=== PATIENT | female | born 1940 | race Caucasian/White ===

== ENCOUNTER → 2024-08-07 | Outpatient (CLI) | payer MEDICARE, SELFPAY ==
[2024-08-07 17:56] LABS: Alanine Aminotransferase < 7 U/L (10-49); Albumin, Serum 4.3 gm/dL (3.4-4.8); Albumin/Globulin Ratio 1.7 (1.2-2.2); Alkaline Phosphatase 43 U/L (46-116); Anion Gap 10 (7-16); Aspartate Amino Transferase 13 U/L (0-34); BUN/Creatinine Ratio 15 Ratio (12-20); Bilirubin,Total 0.3 mg/dL (0.3-1.2); Blood Urea Nitrogen 19 mg/dL (9-23); Calcium 10.3 mg/dL (8.3-10.6); Calcium (Corrected) 10.3 mg/dL (8.5-10.1); Carbon Dioxide 29.1 mMol/L (20.0-31.0); Chloride 100 mMol/L (98-107); Creatinine (Component) 1.3 mg/dL (0.6-1.3); Globulin 2.6 gm/dL (2.3-3.5); Glucose 124 mg/dL (74-106); Osmolality,Calculated 280 (275-295); Potassium 4.2 mMol/L (3.4-5.1); Sodium 139 mMol/L (136-145); Total Protein 6.9 gm/dL (5.7-8.2); eGFR 41 See Note
== END | disposition home or self-care (01) ==
LOC: COPL 16:55
PROVIDERS: PCP Specialist; Referring Provider Internal Medicine; Visit Provider Internal Medicine
DX: D64.9 Anemia, unspecified (principal); E03.9 Hypothyroidism, unspecified; E55.9 Vitamin D deficiency, unspecified; I10 Essential (primary) hypertension; M19.041 Primary osteoarthritis, right hand; M19.042 Primary osteoarthritis, left hand; M81.0 Age-related osteoporosis without current pathological fracture; M87.3 Other secondary osteonecrosis; S82.891K Other fracture of right lower leg, subsequent encounter for closed fracture with nonunion; T84.02 Dislocation of internal joint prosthesis; Z79.899 Other long term (current) drug therapy; Z87.11 Personal history of peptic ulcer disease
CPT/HCPCS: 36415; 80053

== ENCOUNTER → 2024-08-13 | Outpatient (CLI) | payer MEDICARE, SELFPAY ==
--- NOTE | 2024-08-13 16:09 | XR_ITS ---
Examination: Thoracic spine 3 views Technique one AP lateral coned lateral upper dorsal spine 3 views Exam date and time: August 13, 2024 1647 hours INDICATIONS: Patient fell one week ago with injury to the upper back, upper back pain. 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
== END | disposition home or self-care (01) ==
LOC: CDIM 15:54
PROVIDERS: PCP Specialist; Referring Provider Physician Assistant Medical; Visit Provider Physician Assistant Medical
DX: S29.9XXA Unspecified injury of thorax, initial encounter (principal); W19.XXXA Unspecified fall, initial encounter
CPT/HCPCS: 72072

== ENCOUNTER → 2024-08-29 | Outpatient (CLI) | payer MEDICARE, SELFPAY ==
[2024-08-29 13:11] LABS: Collection Type, Urine Clean Catch
[2024-08-29 13:30] LABS: Basophils % (Auto) 1 % (0-2.5); Eosinophils # (Auto) 0.2 Thou/mm3 (0.0-0.5); Eosinophils % (Auto) 3 % (0-10); Hematocrit 30.1 % (36.0-46.0); Hemoglobin 9.3 g/dL (12.0-16.0); Immature Granulocytes % (Auto) 1 % (0-0); Immature Granulocytes Auto 0.04 Thou/mm3 (0.00-0.00); Lymphocytes # (Auto) 1.7 Thou/mm3 (1.0-4.8); Lymphocytes % (Auto) 27 % (10-50); Mean Corpuscular HGB Conc 30.9 g/dl (31.0-37.0); Mean Corpuscular Hemoglobin 28.9 pg (25.0-35.0); Mean Corpuscular Volume 94 fL (80-100); Monocytes # (Auto) 0.7 Thou/mm3 (0.0-0.8); Monocytes % (Auto) 12 % (0-12); Neutrophils # (Auto) 3.6 Thou/mm3 (1.8-7.7); Neutrophils % (Auto) 58 % (37-80); Nucleated Red Blood Cell % 0 /100 WBC (0); Platelet Count 246 Thou/mm3 (140-440); RDW Standard Deviation 50.9 fL (36.4-46.3); Red Blood Count 3.22 Miln/mm3 (4.00-5.20); White Blood Count 6.3 Thou/mm3 (3.6-11.0)
[2024-08-29 13:38] LABS: Bacteria,Urine Rare; Bilirubin,Urine Negative (Negative); Blood,Urine Trace (Negative); Clarity,Urine Turbid (Clear/Hazy); Color,Urine Lt-Yellow (Lt Yel-Yel); Glucose, Urine Negative (Negative); Ketones,Urine Trace (Negative); Leukocyte Esterase,Urine Positive (Negative); Nitrite,Urine Negative (Negative); Protein,Urine Negative (Neg - Trace); RBC,Urine 4 /hpf (0-3); Specific Gravity,Urine 1.008 (1.001-1.035); Squamous Epithelial Cell,Urine 2 /hpf (0-5); WBC,Urine 382 /hpf (0-5)
[2024-08-29 13:44] LABS: Glucose Estimated Average 105 mg/dL (80-131); Hemoglobin A1C 5.3 % Hgb (4.8-6.0)
[2024-08-29 13:48] LABS: Albumin, Serum 3.8 gm/dL (3.4-4.8); Anion Gap 7 (7-16); BUN/Creatinine Ratio 16 Ratio (12-20); Blood Urea Nitrogen 21 mg/dL (9-23); Calcium 9.6 mg/dL (8.3-10.6); Calcium (Corrected) 9.8 mg/dL (8.5-10.1); Carbon Dioxide 26.1 mMol/L (20.0-31.0); Cardiac Risk Estimate 2.2 RATIO (3.7-5.6); Chloride 106 mMol/L (98-107); Cholesterol 111 mg/dL (132-200); Creatinine (Component) 1.3 mg/dL (0.6-1.3); Glucose 114 mg/dL (74-106); HDL Cholesterol 50 mg/dL (40-60); LDL Cholesterol,Calculated 36 mg/dL (0-130); Osmolality,Calculated 281 (275-295); Phosphorous 4.4 mg/dL (2.4-5.1); Sodium 139 mMol/L (136-145); Thyroid Stimulating Hormone 8.65 uIU/mL (0.55-4.78); Triglycerides 123 mg/dL (30-150); eGFR 41 See Note
[2024-08-29 13:49] LABS: Iron 49 mcg/dL (50-170); Percent Iron Saturation 16 % (20-55); Total Iron Binding Capacity 290 mcg/dL (250-425); Unsaturated Iron Binding 241 (225-295); Vitamin B12 1691 pg/mL (211-911)
== END | disposition home or self-care (01) ==
LOC: COPL 12:16
PROVIDERS: PCP Specialist; Referring Provider Specialist; Visit Provider Specialist
DX: N30.90 Cystitis, unspecified without hematuria (principal); E03.8 Other specified hypothyroidism; Z86.39 Personal history of other endocrine, nutritional and metabolic disease; R73.01 Impaired fasting glucose; E78.2 Mixed hyperlipidemia; N18.9 Chronic kidney disease, unspecified; D63.1 Anemia in chronic kidney disease
CPT/HCPCS: 36415; 80061; 80069; 81001; 82607; 82746; 83036; 83540; 83550; 84439; 84443; 85025; 87077; 87086; 87186

== ENCOUNTER → 2024-09-19 | Outpatient (CLI) | payer MEDICARE, SELFPAY ==
[2024-09-19 14:55] LABS: Collection Type, Urine Clean Catch
[2024-09-19 16:19] LABS: Bacteria,Urine 4+; Bilirubin,Urine Negative (Negative); Blood,Urine Negative (Negative); Clarity,Urine Clear (Clear/Hazy); Color,Urine Lt-Yellow (Lt Yel-Yel); Glucose, Urine Negative (Negative); Ketones,Urine Negative (Negative); Leukocyte Esterase,Urine Positive (Negative); Nitrite,Urine Negative (Negative); PH,Urine 6.5 (5.0-7.0); Protein,Urine Negative (Neg - Trace); RBC,Urine 9 /hpf (0-3); Specific Gravity,Urine 1.008 (1.001-1.035); Squamous Epithelial Cell,Urine < 1 /hpf (0-5); Urobilinogen,Urine Negative mg/dL (0.0-1.0); WBC,Urine 113 /hpf (0-5)
== END | disposition home or self-care (01) ==
LOC: SLDO 14:41
PROVIDERS: PCP Specialist; Referring Provider Specialist; Visit Provider Specialist
DX: R30.0 Dysuria (principal)
CPT/HCPCS: 81001; 87077; 87086; 87186

== ENCOUNTER → 2024-09-25 | Outpatient (CLI) | payer MEDICARE, SELFPAY ==
[2024-09-25 17:55] LABS: Basophils % (Auto) 1 % (0-2.5); Eosinophils # (Auto) 0.2 Thou/mm3 (0.0-0.5); Eosinophils % (Auto) 4 % (0-10); Hematocrit 32.6 % (36.0-46.0); Hemoglobin 10.1 g/dL (12.0-16.0); Immature Granulocytes % (Auto) 0 % (0-0); Immature Granulocytes Auto 0.01 Thou/mm3 (0.00-0.00); Immature Reticulocyte Fraction 7.7 % (3.0-15.9); Lymphocytes # (Auto) 1.4 Thou/mm3 (1.0-4.8); Lymphocytes % (Auto) 31 % (10-50); Mean Corpuscular Hemoglobin 28.7 pg (25.0-35.0); Mean Corpuscular Volume 93 fL (80-100); Monocytes # (Auto) 0.5 Thou/mm3 (0.0-0.8); Monocytes % (Auto) 11 % (0-12); Neutrophils # (Auto) 2.4 Thou/mm3 (1.8-7.7); Neutrophils % (Auto) 54 % (37-80); Nucleated Red Blood Cell % 0 /100 WBC (0); Platelet Count 204 Thou/mm3 (140-440); RDW Standard Deviation 47.3 fL (36.4-46.3); Red Blood Count 3.52 Miln/mm3 (4.00-5.20); Reticulocyte % (Auto) 1.4 % (0.5-1.5); Reticulocyte Absolute Auto 47.9 Biln/L (25.0-75.0); Reticulocyte Hgb Content 32.4 pg (28.0-35.0); White Blood Count 4.6 Thou/mm3 (3.6-11.0)
[2024-09-25 18:55] LABS: Parathyroid Hormone Intact 165.8 pg/ml (18.5-88.0)
[2024-09-25 18:57] LABS: Iron 79 mcg/dL (50-170); Percent Iron Saturation 25 % (20-55); Total Iron Binding Capacity 310 mcg/dL (250-425); Unsaturated Iron Binding 231 (225-295)
[2024-09-25 19:00] LABS: Anion Gap 10 (7-16); BUN/Creatinine Ratio 12 Ratio (12-20); Blood Urea Nitrogen 13 mg/dL (9-23); Calcium 9.3 mg/dL (8.3-10.6); Calcium (Corrected) 9.3 mg/dL (8.5-10.1); Carbon Dioxide 26.8 mMol/L (20.0-31.0); Chloride 100 mMol/L (98-107); Creatinine (Component) 1.1 mg/dL (0.6-1.3); Free T3 3.2 pg/mL (2.3-4.2); Free T4 (Free Thyroxine) 1.33 ng/dL (0.89-1.76); Glucose 91 mg/dL (74-106); Osmolality,Calculated 273 (275-295); Potassium 4.5 mMol/L (3.4-5.1); Sodium 137 mMol/L (136-145); Thyroid Stimulating Hormone 1.79 uIU/mL (0.55-4.78); eGFR 50 See Note
[2024-09-30 07:18] LABS: Vitamin D, 25-OH, D2 <4 ng/mL; Vitamin D, 25-OH, D3 69 ng/mL; Vitamin D, 25-OH, Total 69 ng/mL (30-100)
== END | disposition home or self-care (01) ==
LOC: COPL 16:46
PROVIDERS: PCP Specialist; Referring Provider Specialist; Visit Provider Specialist
DX: D50.9 Iron deficiency anemia, unspecified (principal); E03.4 Atrophy of thyroid (acquired); E83.52 Hypercalcemia; N18.9 Chronic kidney disease, unspecified
CPT/HCPCS: 36415; 80069; 82306; 83540; 83550; 83970; 84439; 84443; 84481; 85025; 85046

== ENCOUNTER → 2024-09-26 | Outpatient (CLI) | payer MEDICARE, SELFPAY ==
--- NOTE | 2024-09-26 16:27 | XR_ITS ---
Examination: CT brain head without contrast. 2-D sagittal coronal reconstructions Date and time of exam:September 26, 2024 1644 hrs. Indications: Headaches beginning 2 days ago CTDI: vol (mGy):48.6 DLP: (mGycm):1061 Technique: Multiple CT axial sections of the brain have been obtained, 5 mm slice thickness. Contrast has not been administered. 2-D sagittal, coronal reconstructions have been obtained Low dose protocols were performed. One or more of the following dose reduction techniques were used; automated exposure control, adjustment of the mA and/or KV according to patient size, use of iterative reconstruction technique. Findings: No significant ventricular enlargement. Intra-axial or extra-axial hemorrhage density is not seen. No mass effect or midline shift Basal cisterns are not remarkable. Fourth ventricle is midline. Cranial vault intact. Impression: Negative for acute hemorrhage, mass effect or midline shift Advise clinical correlation follow-up accordingly
== END | disposition home or self-care (01) ==
LOC: SCAT 16:20
PROVIDERS: PCP Specialist; Referring Provider Internal Medicine Cardiovascular Disease; Visit Provider Internal Medicine Cardiovascular Disease
DX: S06.5XAA Traumatic subdural hemorrhage with loss of consciousness status unknown, initial encounter (principal); S09.8XXA Other specified injuries of head, initial encounter; X58.XXXA Exposure to other specified factors, initial encounter
CPT/HCPCS: 70450

== ENCOUNTER → 2025-02-14 | Outpatient (CLI) | payer MEDICARE, SELFPAY ==
[2025-02-14 14:29] LABS: Collection Type, Urine Clean Catch
[2025-02-14 15:54] LABS: Vitamin D 25 Hydroxy Total 63.5 ng/mL (7.3-40.2)
[2025-02-14 16:28] LABS: Bacteria,Urine Rare; Bilirubin,Urine Negative (Negative); Blood,Urine Negative (Negative); Color,Urine Lt-Yellow (Lt Yel-Yel); Glucose, Urine Negative (Negative); Ketones,Urine Negative (Negative); Leukocyte Esterase,Urine Positive (Negative); Nitrite,Urine Negative (Negative); PH,Urine 6.0 (5.0-7.0); Protein,Urine Negative (Neg - Trace); RBC,Urine 4 /hpf (0-3); Specific Gravity,Urine 1.012 (1.001-1.035); Squamous Epithelial Cell,Urine 2 /hpf (0-5); Urobilinogen,Urine Negative mg/dL (0.0-1.0); WBC,Urine 41 /hpf (0-5)
[2025-02-14 16:37] LABS: Clarity,Urine Hazy (Clear/Hazy)
[2025-02-14 16:59] LABS: Alanine Aminotransferase < 7 U/L (10-49); Albumin, Serum 3.9 gm/dL (3.4-4.8); Albumin/Globulin Ratio 1.4 (1.2-2.2); Alkaline Phosphatase 37 U/L (46-116); Anion Gap 8 (7-16); Aspartate Amino Transferase 17 U/L (0-34); BUN/Creatinine Ratio 15 Ratio (12-20); Bilirubin,Total 0.2 mg/dL (0.3-1.2); Blood Urea Nitrogen 23 mg/dL (9-23); Calcium 10.1 mg/dL (8.3-10.6); Calcium (Corrected) 10.2 mg/dL (8.5-10.1); Carbon Dioxide 29.2 mMol/L (20.0-31.0); Chloride 104 mMol/L (98-107); Creatinine (Component) 1.5 mg/dL (0.6-1.3); Globulin 2.8 gm/dL (2.3-3.5); Glucose 104 mg/dL (74-106); Osmolality,Calculated 284 (275-295); Potassium 4.6 mMol/L (3.4-5.1); Sodium 141 mMol/L (136-145); Total Protein 6.7 gm/dL (5.7-8.2); eGFR 34 See Note
== END | disposition home or self-care (01) ==
PROVIDERS: PCP Specialist; Referring Provider Physician Assistant Medical; Visit Provider Physician Assistant Medical
DX: M81.0 Age-related osteoporosis without current pathological fracture (principal); R30.0 Dysuria
CPT/HCPCS: 36415; 80053; 81001; 82306; 87086

== ENCOUNTER → 2025-02-17 | Outpatient (CLI) | payer MEDICARE, SELFPAY ==
[2025-02-17 15:41] LABS: Collection Type, Urine Clean Catch; Squamous Epithelial Cell,Urine 0 /hpf (0-5)
[2025-02-17 16:13] LABS: Bilirubin,Urine Negative (Negative); Blood,Urine Negative (Negative); Clarity,Urine Clear (Clear/Hazy); Color,Urine Lt-Yellow (Lt Yel-Yel); Glucose, Urine Negative (Negative); Ketones,Urine Negative (Negative); Leukocyte Esterase,Urine Positive (Negative); Nitrite,Urine Negative (Negative); PH,Urine 7.0 (5.0-7.0); Protein,Urine Negative (Neg - Trace); RBC,Urine 1 /hpf (0-3); Specific Gravity,Urine 1.009 (1.001-1.035); Urobilinogen,Urine Negative mg/dL (0.0-1.0); WBC,Urine 8 /hpf (0-5)
== END | disposition home or self-care (01) ==
LOC: SLDO 14:32
PROVIDERS: PCP Specialist; Referring Provider Specialist; Visit Provider Specialist
DX: R35.0 Frequency of micturition (principal)
CPT/HCPCS: 81001; 87086

== ENCOUNTER → 2025-02-26 | Outpatient (CLI) | payer MEDICARE, SELFPAY ==
--- NOTE | 2025-02-26 11:00 | XR_ITS ---
Examination: MRI cervical spine without intravenous contrast Date and time of exam: February 26, 2025 at 1232 hours INDICATIONS: Neck pain stiffness 2 months Technique: Multiple axial and sagittal sections of the cervical spine to been obtained. T2 weighted sagittal sections, TR 3, 270, TE 117 T1-weighted sagittal sections, TR 500, TE 11 T1-weighted axial sections, TR 607, TE 12, axial sections TR 18, TE 27 and T2 weighted transverse sections, TR 3920, TE 122. Findings: Exaggerated cervical lordosis Anterolisthesis T1 on T2 2 mm No cervical fracture Intact odontoid Diffuse cervical disc desiccation Advanced disc narrowing C5-C6 C6-C7 as well as T1-T2, T2-T3 No localized enlargement cervical cord C2-C3 moderate right neural foraminal stenosis C3-C4 moderate bilateral neural foraminal stenosis C4-C5 no disc protrusion C5-C6 2 mm central subarticular osteophyte disc complex, moderate right neural foraminal stenosis C6-C7 2 mm central subarticular osteophyte disc complex, moderate left neural foraminal stenosis C7-T1 moderate bilateral neural foraminal stenosis T2-T3 5 mm disc bulge IMPRESSION: C2-C3 moderate right neural foraminal stenosis C3-C4 moderate bilateral neural foraminal stenosis C5-C6 2 mm central subarticular osteophyte disc complex, moderate right neural foraminal stenosis C6-C7 2 mm central subarticular osteophyte disc complex, moderate left neural foraminal stenosis Consider MRI thoracic spine follow-up to assess 5 mm disc bulge T2-T3 level
== END | disposition home or self-care (01) ==
LOC: SMRI 10:37
PROVIDERS: PCP Specialist; Referring Provider Physical Medicine & Rehabilitation Pain Medicine; Visit Provider Physical Medicine & Rehabilitation Pain Medicine
DX: M48.02 Spinal stenosis, cervical region (principal); M25.78 Osteophyte, vertebrae
CPT/HCPCS: 72141

== ENCOUNTER → 2025-03-27 | Outpatient (CLI) | payer MEDICARE, SELFPAY ==
[2025-03-27 16:39] LABS: Collection Type, Urine Clean Catch; Squamous Epithelial Cell,Urine 0 /hpf (0-5)
[2025-03-27 17:30] LABS: Basophils # (Auto) 0.0 Thou/mm3 (0.0-0.2); Basophils % (Auto) 1 % (0-2.5); Eosinophils # (Auto) 0.1 Thou/mm3 (0.0-0.5); Eosinophils % (Auto) 2 % (0-10); Hematocrit 30.7 % (36.0-46.0); Hemoglobin 9.7 g/dL (12.0-16.0); Immature Granulocytes Auto 0.02 Thou/mm3 (0.00-0.00); Lymphocytes # (Auto) 1.5 Thou/mm3 (1.0-4.8); Lymphocytes % (Auto) 31 % (10-50); Mean Corpuscular HGB Conc 31.6 g/dl (31.0-37.0); Mean Corpuscular Hemoglobin 29.8 pg (25.0-35.0); Mean Corpuscular Volume 94 fL (80-100); Monocytes # (Auto) 0.5 Thou/mm3 (0.0-0.8); Monocytes % (Auto) 11 % (0-12); Neutrophils # (Auto) 2.6 Thou/mm3 (1.8-7.7); Neutrophils % (Auto) 55 % (37-80); Nucleated Red Blood Cell # 0.00 Thou/mm3 (0.00-0.00); Nucleated Red Blood Cell % 0 /100 WBC (0); Platelet Count 238 Thou/mm3 (140-440); RDW Standard Deviation 47.5 fL (36.4-46.3); Red Blood Count 3.26 Miln/mm3 (4.00-5.20); White Blood Count 4.7 Thou/mm3 (3.6-11.0)
[2025-03-27 17:41] LABS: Creatinine MALB Rnd Ur 37 mg/dL (30-125); Microalbumin Creat Ratio 16 mg/gCrea (<30); Microalbumin, Random Urine 6 mg/L (0-300)
[2025-03-27 17:42] LABS: Bilirubin,Urine Negative (Negative); Blood,Urine 1+ (Negative); Clarity,Urine Turbid (Clear/Hazy); Color,Urine Lt-Yellow (Lt Yel-Yel); Glucose, Urine Negative (Negative); Ketones,Urine Negative (Negative); Leukocyte Esterase,Urine Positive (Negative); Nitrite,Urine Negative (Negative); PH,Urine 6.5 (5.0-7.0); Protein,Urine Trace (Neg - Trace); RBC,Urine 35 /hpf (0-3); Specific Gravity,Urine 1.008 (1.001-1.035); Urobilinogen,Urine Negative mg/dL (0.0-1.0); WBC,Urine 351 /hpf (0-5)
[2025-03-27 17:43] LABS: Culture Indicated,Urine Yes
[2025-03-27 17:43] LABS: Parathyroid Hormone Intact 135.1 pg/ml (18.5-88.0)
[2025-03-27 17:48] LABS: Albumin, Serum 4.0 gm/dL (3.4-4.8); Anion Gap 9 (7-16); BUN/Creatinine Ratio 15 Ratio (12-20); Blood Urea Nitrogen 21 mg/dL (9-23); Calcium 9.3 mg/dL (8.3-10.6); Calcium (Corrected) 9.3 mg/dL (8.5-10.1); Carbon Dioxide 24.4 mMol/L (20.0-31.0); Chloride 102 mMol/L (98-107); Creatinine (Component) 1.4 mg/dL (0.6-1.3); Glucose 100 mg/dL (74-106); Osmolality,Calculated 273 (275-295); Phosphorous 5.4 mg/dL (2.4-5.1); Potassium 4.9 mMol/L (3.4-5.1); Sodium 135 mMol/L (136-145); eGFR 37 See Note
== END | disposition home or self-care (01) ==
LOC: COPL 15:54
PROVIDERS: PCP Specialist; Referring Provider Internal Medicine; Visit Provider Internal Medicine
DX: I12.9 Hypertensive chronic kidney disease with stage 1 through stage 4 chronic kidney disease, or unspecified chronic kidney disease (principal); N18.30 Chronic kidney disease, stage 3 unspecified; E03.9 Hypothyroidism, unspecified
CPT/HCPCS: 36415; 80069; 81001; 82043; 82570; 83970; 85025; 87086

== ENCOUNTER → 2025-04-22 | Outpatient (CLI) | payer MEDICARE, SELFPAY ==
[2025-04-22 12:03] LABS: Collection Type, Urine Clean Catch
[2025-04-22 13:41] LABS: Bilirubin,Urine Negative (Negative); Blood,Urine Negative (Negative); Clarity,Urine Clear (Clear/Hazy); Color,Urine Lt-Yellow (Lt Yel-Yel); Glucose, Urine Negative (Negative); Ketones,Urine Negative (Negative); Leukocyte Esterase,Urine Positive (Negative); Nitrite,Urine Positive (Negative); PH,Urine 6.5 (5.0-7.0); Protein,Urine Negative (Neg - Trace); RBC,Urine 20 /hpf (0-3); Specific Gravity,Urine 1.006 (1.001-1.035); Squamous Epithelial Cell,Urine < 1 /hpf (0-5); Urobilinogen,Urine Negative mg/dL (0.0-1.0); WBC,Urine 32 /hpf (0-5)
== END | disposition home or self-care (01) ==
LOC: SLDO 11:58
PROVIDERS: PCP Specialist; Referring Provider Specialist; Visit Provider Specialist
DX: N39.0 Urinary tract infection, site not specified (principal)
CPT/HCPCS: 81001; 87077; 87086; 87186

== ENCOUNTER → 2025-04-22 | Outpatient (CLI) | payer MEDICARE, SELFPAY ==
--- NOTE | 2025-04-22 12:00 | XR_ITS ---
Examination: Retroperitoneal ultrasound, complete Technique: Multiple high resolution grayscale images of the retroperitoneum obtained, including kidneys and bladder. Exam date and time: April 22, 2025, 1221 hours INDICATIONS: Frequent urination and lack of bladder control 1 month FINDINGS: Right kidney 7.8 cm renal cortex 1.4 cm Moderate hydronephrosis Left kidney 6.3 cm renal cortex 0.8 cm Mild hydronephrosis Mild renal scar formation No bladder mass or bladder calculi, bladder prevoid volume 700 post void volume 536 cc IMPRESSION: Moderate right and mild left hydronephrosis, clinical correlation advised
== END | disposition home or self-care (01) ==
LOC: CDIM 11:43
PROVIDERS: PCP Internal Medicine; Referring Provider Internal Medicine; Visit Provider Internal Medicine
DX: N13.30 Unspecified hydronephrosis (principal)
CPT/HCPCS: 76770

== ENCOUNTER → 2025-05-22 | Outpatient (CLI) | payer MEDICARE, SELFPAY ==
--- NOTE | 2025-05-22 12:30 | XR_ITS ---
EXAMINATION: Nuclear medicine kidney imaging and flow and function multiple studies Date and time: May 22, 2025, 1501 hours INDICATIONS: Flank pain lower back pain 15 years lack of bladder control frequent urination, ultrasound examination April 22, 2025 moderate right mild left hydronephrosis TECHNIQUE AND FINDINGS: Intravenous administration 10.4 mCi MAG3 with flow and function curves generated to 60 minutes Minimal flow to the left kidney with minimal renal function Adequate flow to the right kidney with mildly impaired renal function IMPRESSION: Minimal flow left kidney with minimal renal function Adequate flow to the right kidney with mildly impaired renal function
[2025-05-22 14:00] VITALS: BP 112/63; PULSE 69
[2025-05-22] MEDS: FUROSEMIDE INJ 10 MG/ML 4ML VIAL 40 MG (14:00)
[2025-05-22 14:05] VITALS: BP 93/51; PULSE 69; RESP 12; O2SAT 95
== END | disposition home or self-care (01) ==
LOC: SNUC 12:05
PROVIDERS: PCP Specialist; Referring Provider Internal Medicine; Visit Provider Internal Medicine
DX: N28.9 Disorder of kidney and ureter, unspecified (principal)
CPT/HCPCS: 78709; A9562; J1938

== ENCOUNTER → 2025-06-19 | Outpatient (CLI) | payer MEDICARE, SELFPAY ==
[2025-06-19 14:25] LABS: Collection Type, Urine Clean Catch
[2025-06-19 14:57] LABS: Bacteria,Urine Rare; Bilirubin,Urine Negative (Negative); Blood,Urine Trace (Negative); Color,Urine Drk-Yellow (Lt Yel-Yel); Glucose, Urine Negative (Negative); Hyaline Casts,Urine < 1 /hpf (0-1); Ketones,Urine 1+ (Negative); Leukocyte Esterase,Urine Positive (Negative); Nitrite,Urine Positive (Negative); PH,Urine 6.0 (5.0-7.0); Protein,Urine Negative (Neg - Trace); RBC,Urine 4 /hpf (0-3); Specific Gravity,Urine 1.009 (1.001-1.035); Squamous Epithelial Cell,Urine < 1 /hpf (0-5); Urobilinogen,Urine 4.0 mg/dL (0.0-1.0); WBC,Urine 197 /hpf (0-5)
[2025-06-19 15:42] LABS: Clarity,Urine Hazy (Clear/Hazy)
== END | disposition home or self-care (01) ==
LOC: SLDO 14:13
PROVIDERS: Referring Provider Specialist; Visit Provider Specialist
DX: R35.0 Frequency of micturition (principal)
CPT/HCPCS: 81001; 87077; 87086; 87186

== ENCOUNTER → 2025-06-23 | Outpatient (CLI) | payer MEDICARE, SELFPAY ==
[2025-06-23 18:11] LABS: Calcium, Ionized 5.0 mg/dL (4.6-5.6)
[2025-06-23 18:16] LABS: Basophils # (Auto) 0.0 Thou/mm3 (0.0-0.2); Basophils % (Auto) 1 % (0-2.5); Eosinophils # (Auto) 0.1 Thou/mm3 (0.0-0.5); Eosinophils % (Auto) 2 % (0-10); Hematocrit 32.2 % (36.0-46.0); Hemoglobin 9.5 g/dL (12.0-16.0); Immature Granulocytes Auto 0.02 Thou/mm3 (0.00-0.00); Lymphocytes # (Auto) 1.7 Thou/mm3 (1.0-4.8); Lymphocytes % (Auto) 29 % (10-50); Mean Corpuscular HGB Conc 29.5 g/dl (31.0-37.0); Mean Corpuscular Hemoglobin 30.0 pg (25.0-35.0); Mean Corpuscular Volume 102 fL (80-100); Monocytes # (Auto) 0.7 Thou/mm3 (0.0-0.8); Monocytes % (Auto) 12 % (0-12); Neutrophils # (Auto) 3.3 Thou/mm3 (1.8-7.7); Neutrophils % (Auto) 56 % (37-80); Nucleated Red Blood Cell # 0.00 Thou/mm3 (0.00-0.00); Nucleated Red Blood Cell % 0 /100 WBC (0); Platelet Count 186 Thou/mm3 (140-440); RDW Standard Deviation 53.0 fL (36.4-46.3); Red Blood Count 3.17 Miln/mm3 (4.00-5.20); White Blood Count 5.9 Thou/mm3 (3.6-11.0)
[2025-06-23 18:38] LABS: Creatinine MALB Rnd Ur 43 mg/dL (30-125); Microalbumin Creat Ratio 677 mg/gCrea (<30); Microalbumin, Random Urine 291 mg/L (0-300)
[2025-06-23 20:15] LABS: Iron 41 mcg/dL (50-170); Percent Iron Saturation 15 % (20-55); Total Iron Binding Capacity 273 mcg/dL (250-425); Unsaturated Iron Binding 232 (225-295)
[2025-06-23 20:20] LABS: Parathyroid Hormone Intact 149.6 pg/ml (18.5-88.0)
[2025-06-23 20:25] LABS: Vitamin D 25 Hydroxy Total 71.3 ng/mL (7.3-40.2)
[2025-06-23 20:33] LABS: Alanine Aminotransferase < 7 U/L (10-49); Albumin, Serum 4.3 gm/dL (3.4-4.8); Albumin/Globulin Ratio 1.4 (1.2-2.2); Alkaline Phosphatase 40 U/L (46-116); Anion Gap 11 (7-16); Aspartate Amino Transferase 18 U/L (0-34); BUN/Creatinine Ratio 14 Ratio (12-20); Bilirubin,Total 0.3 mg/dL (0.3-1.2); Blood Urea Nitrogen 24 mg/dL (9-23); Calcium 9.3 mg/dL (8.3-10.6); Calcium (Corrected) 9.3 mg/dL (8.5-10.1); Carbon Dioxide 25.1 mMol/L (20.0-31.0); Cardiac Risk Estimate 1.9 RATIO (3.7-5.6); Chloride 108 mMol/L (98-107); Cholesterol 101 mg/dL (132-200); Creatinine (Component) 1.7 mg/dL (0.6-1.3); Free T4 (Free Thyroxine) 1.27 ng/dL (0.89-1.76); Globulin 3.1 gm/dL (2.3-3.5); Glucose 150 mg/dL (74-106); HDL Cholesterol 53 mg/dL (40-60); LDL Cholesterol,Calculated 22 mg/dL (0-130); Osmolality,Calculated 293 (275-295); Potassium 4.6 mMol/L (3.4-5.1); Sodium 144 mMol/L (136-145); Thyroid Stimulating Hormone 1.89 uIU/mL (0.55-4.78); Total Protein 7.4 gm/dL (5.7-8.2); Triglycerides 129 mg/dL (30-150); eGFR 30 See Note
[2025-06-27 06:25] LABS: T3,Total* 86 ng/dL (76-181)
== END | disposition home or self-care (01) ==
LOC: COPL 15:39
PROVIDERS: PCP Specialist; Referring Provider Specialist; Visit Provider Specialist
DX: E83.51 Hypocalcemia (principal); E03.8 Other specified hypothyroidism; I12.9 Hypertensive chronic kidney disease with stage 1 through stage 4 chronic kidney disease, or unspecified chronic kidney disease; N18.9 Chronic kidney disease, unspecified; D63.1 Anemia in chronic kidney disease; E78.2 Mixed hyperlipidemia
CPT/HCPCS: 36415; 80053; 80061; 82043; 82306; 82330; 82570; 83540; 83550; 83970; 84439; 84443; 84480; 85025

== ENCOUNTER → 2025-06-25 | Outpatient (CLI) | payer MEDICARE, SELFPAY ==
--- NOTE | 2025-06-25 11:45 | XR_ITS ---
Examination: Screening digital mammography, bilateral Computer aided detection 3-D breast Tomosynthesis, bilateral Date and time of exam: 06/25/2025, 11:35 a.m. Comparisons: 03/09/2018 Indications: Screening Technique: Nonmagnified MLO, CC views of the breasts to been obtained, reconstructed from 3-D Tomosynthesis images. R2 computer aided detection program utilized for evaluation of suspicious masses and/or abnormal calcifications. 3-D Tomosynthesis images obtained. Technologist: Findings: There are scattered areas of fibroglandular density. No evidence of abnormal masses or suspicious calcifications. Impression: BI-RADS category 1: Negative findings (within normal) Recommend 1 year follow-up mammogram
== END | disposition home or self-care (01) ==
PROVIDERS: PCP Specialist; Referring Provider Specialist; Visit Provider Specialist
DX: Z12.31 Encounter for screening mammogram for malignant neoplasm of breast (principal); R92.313 Mammographic fatty tissue density, bilateral breasts
CPT/HCPCS: 77063; 77067